=== PATIENT | female | born 1955 | race Caucasian/White ===

== ENCOUNTER 2018-10-16 12:25 | Emergency (ER) | payer OTHER ==
[~2018-10-16] VITALS: Ht 160 cm; Wt 104.3 kg
[2018-10-16] MEDS ORDERED: HUMALOG100 UNIT/1 (13:15)
[2018-10-16] MEDS ORDERED: COZAAR50 MG (13:15)
== END 2018-10-16 17:32 | disposition home or self-care (01) ==
LOC: ER 12:25
DX: S30.0XXA Contusion of lower back and pelvis, initial encounter (principal); S60.221A Contusion of right hand, initial encounter; S80.02XA Contusion of left knee, initial encounter; W18.39XA Other fall on same level, initial encounter; Y93.89 Activity, other specified; Y92.59 Other trade areas as the place of occurrence of the external cause; Y99.8 Other external cause status